=== PATIENT | female | born 1945 | race African-American/Black ===

== ENCOUNTER 2017-01-08 18:29 | Inpatient (IN) ==
[2017-01-08] MEDS ORDERED: ASPIRIN 325 MG TABLET PO STA (19:32)
[2017-01-08 20:12] LABS: Basophils # 0.1 10*3/uL (0.0-0.2); Basophils % 0.6 % (0.0-0.8); Eosinophils # 0.2 10*3/uL (0.0-0.87); Eosinophils % 2.6 % (0.00-10.9); Hematocrit 35.2 VOL% (35.7-47.0); Hemoglobin 11.8 GM/DL (12.0-16.0); Immature Granulocytes % 0.3 %; Immature Granulocytes Absolute 0.03 #; Lymphocytes # 2.3 10*3/uL (1.4-4.0); Lymphocytes % 26.7 % (21.3-54.2); Mean Corpuscular HGB Conc 33.5 GM/DL (32-36); Mean Corpuscular Hemoglobin 30 PG (27-34); Mean Corpuscular Volume 90.3 FL (87-102); Mean Platelet Volume 9.9 FL (9.6-12.0); Monocytes # 0.6 10*3/uL (0.11-0.8); Monocytes % 7.1 % (1.7-12.7); Neutrophils # 5.4 10*3/uL (1.4-7.4); Neutrophils % 62.7 % (38.7-73.9); Platelet Count 287 T/CUMM (130-400); Red Cell Distribution Width 13.5 % (9.3-17.3); White Blood Count 8.6 T/CUMM (4-12)
[2017-01-08 20:23] LABS: INR 0.9; Partial Thromboplastin Time 25.8 SECS (0-40)
[2017-01-08 20:26] LABS: Apearance,Urine CLEAR (Clear); Bilirubin,Urine Negative (Negative); Blood, Urine Negative (Negative); Glucose,Urine (UA) Negative (Negative); Ketones,Urine Negative (Negative); Nitrite,Urine Negative (Negative); Protein,Urine Negative; Urine Color Colorless (Yellow); Urine Specific Gravity 1.002 (1.001-1.035); Urine Urobilinogen < 2.0 EU/DL (0.2-1.0)
[2017-01-08 20:47] LABS: Alanine Aminotransferase 15 U/L (13-56); Albumin 3.5 G/DL (3.4-5.0); Alkaline Phosphatase 67 U/L (45-117); Aspartate Amino Transferase 11 U/L (0-37); Blood Urea Nitrogen 11 MG/DL (7-18); Calcium 9.8 MG/DL (8.5-10.1); Glucose 128 MG/DL (74-106); Osmolality,Calculated 277.5 MOS/KG (273-304); Potassium 3.4 MMOL/L (3.5-5.1); Sodium 139 MMOL/L (136-145); Total Protein 7.8 G/DL (6.4-8.3)
[2017-01-08] MEDS ORDERED: ASPIRIN 325 MG TABLET ONE (20:50)
[2017-01-08] MEDS ORDERED: POTASSIUM CHLORIDE 20 MEQ TABLET PO STA (20:51)
[2017-01-08] MEDS ORDERED: POTASSIUM CHLORIDE 20 MEQ TABLET PO ONE (20:56)
[2017-01-08] MEDS ORDERED: FUROSEMIDE 20 MG TABLET PO PRN (22:18)
[2017-01-08] MEDS ORDERED: ONDANSETRON 4 MG/2 ML VIAL IV PRN (22:18)
[2017-01-08] MEDS ORDERED: diphenhydrAMINE CAP 25 MG CAPSULE PO PRN (22:18)
[2017-01-08] MEDS ORDERED: DEXTROSE 50% 25 GM/50 ML VIAL IV PRN (22:18)
[2017-01-08] MEDS ORDERED: MORPHINE 2 MG/1 ML SYRINGE IV PRN (22:18)
[2017-01-08] MEDS ORDERED: ACETAMINOPHEN 325 MG TABLET PO PRN (22:18)
[2017-01-08] MEDS ORDERED: GLUCAGON 1 MG VIAL IM PRN (22:18)
[2017-01-08] MEDS: ENOXAPARIN 40 MG/0.4 ML SYRINGE SUBCUT SCH (23:19)
[2017-01-08] MEDS: SODIUM CHLORIDE 0.9% 1,000 ML IV SCH (23:19)
[2017-01-09 05:50] LABS: Basophils # 0.1 10*3/uL (0.0-0.2); Basophils % 0.8 % (0.0-0.8); Eosinophils # 0.3 10*3/uL (0.0-0.87); Eosinophils % 3.4 % (0.00-10.9); Hematocrit 31.9 VOL% (35.7-47.0); Hemoglobin 10.6 GM/DL (12.0-16.0); Immature Granulocytes % 0.3 %; Immature Granulocytes Absolute 0.02 #; Lymphocytes # 2.3 10*3/uL (1.4-4.0); Lymphocytes % 30.1 % (21.3-54.2); Mean Corpuscular HGB Conc 33.2 GM/DL (32-36); Mean Corpuscular Hemoglobin 30 PG (27-34); Mean Corpuscular Volume 89.1 FL (87-102); Mean Platelet Volume 10.6 FL (9.6-12.0); Monocytes # 0.6 10*3/uL (0.11-0.8); Monocytes % 7.9 % (1.7-12.7); Neutrophils # 4.4 10*3/uL (1.4-7.4); Neutrophils % 57.5 % (38.7-73.9); Platelet Count 272 T/CUMM (130-400); Red Blood Count 3.58 MC/CUMM (3.8-5.5); Red Cell Distribution Width 13.6 % (9.3-17.3); White Blood Count 7.6 T/CUMM (4-12)
[2017-01-09 06:10] LABS: Albumin 2.8 G/DL (3.4-5.0); Bilirubin,Total 1.4 MG/DL (0.2-1.0); Calcium 9.2 MG/DL (8.5-10.1); Magnesium 1.6 MG/DL (1.8-2.4); Osmolality,Calculated 281.4 MOS/KG (273-304); Potassium 3.7 MMOL/L (3.5-5.1); Risk Ratio 1.94; VLDL CHOLESTEROL 21.2 MG/DL
[2017-01-09] MEDS ORDERED: MAGNESIUM SULF RIDER 2 GM in PREMIX 1 EACH IV ONE (06:39)
[2017-01-09 07:42] LABS: Folate 8.2 NG/ML (5.4-24.0)
[2017-01-09] MEDS: metFORMIN 500 MG TABLET PO SCH ×2 (08:51→21:18)
[2017-01-09] MEDS: GABAPENTIN 600 MG TABLET PO SCH ×2 (08:51→21:19)
[2017-01-09] MEDS: DOCUSATE SODIUM 100 MG CAPSULE PO SCH ×2 (08:52→21:20)
[2017-01-09] MEDS ORDERED: GLIMEPIRIDE 2 MG TABLET PO SCH (09:00)
[2017-01-09] MEDS: PANTOPRAZOLE 40 MG TABLET PO SCH (09:07)
[2017-01-09] MEDS: LOSARTAN/HCTZ 50-12.5 MG TABLET PO SCH (09:58)
[2017-01-09] MEDS: INSULIN REGULAR 100 UNIT/ML SUBCUT SCH ×4 (09:58→21:20)
[2017-01-09] MEDS: SODIUM CHLORIDE 0.9% 1,000 ML IV SCH (17:38)
[2017-01-09] MEDS ORDERED: sitaGLIPtin 100 MG TABLET PO SCH (21:00)
[2017-01-09] MEDS ORDERED: POTASSIUM CHLORIDE 20 MEQ TABLET PO ONE (21:00)
[2017-01-09] MEDS ORDERED: SIMVASTATIN 40 MG TABLET PO SCH (21:00)
[2017-01-09] MEDS: ENOXAPARIN 40 MG/0.4 ML SYRINGE SUBCUT SCH (21:19)
[2017-01-09] MEDS: GLIMEPIRIDE 2 MG TABLET PO SCH (21:19)
[2017-01-10 06:18] LABS: Calcium 9.3 MG/DL (8.5-10.1); Magnesium 1.8 MG/DL (1.8-2.4); Osmolality,Calculated 280.4 MOS/KG (273-304); Potassium 3.9 MMOL/L (3.5-5.1)
[2017-01-10] MEDS ORDERED: MAGNESIUM CHLORIDE 64 MG TABLET PO SCH (09:00)
[2017-01-10] MEDS: metFORMIN 500 MG TABLET PO SCH (10:04)
[2017-01-10] MEDS: GABAPENTIN 600 MG TABLET PO SCH (10:04)
[2017-01-10] MEDS: LOSARTAN/HCTZ 50-12.5 MG TABLET PO SCH (10:04)
[2017-01-10] MEDS: GLIMEPIRIDE 2 MG TABLET PO SCH (10:05)
[2017-01-10] MEDS: DOCUSATE SODIUM 100 MG CAPSULE PO SCH (10:05)
[2017-01-10] MEDS: PANTOPRAZOLE 40 MG TABLET PO SCH (10:05)
[2017-01-10] MEDS: INSULIN REGULAR 100 UNIT/ML SUBCUT SCH ×2 (10:06→13:40)
[2017-01-10 11:45] VITALS: BP 162/87
[2017-01-10] MEDS: SODIUM CHLORIDE 0.9% 1,000 ML IV SCH (13:41)
== END 2017-01-10 13:50 | disposition home or self-care (01) | DRG 69 ==
LOC: N.ED 18:29 → N.EDINP 21:02 → N.TELEN 21:08
PROVIDERS: ADMIT Family Medicine; ATTEND Family Medicine

== ENCOUNTER 2017-06-24 16:41 | Inpatient (IN) ==
[2017-06-26 11:23] VITALS: BP 167/96
== END 2017-06-26 16:15 | disposition home or self-care (01) | DRG 69 ==
LOC: N.ED 16:41 → N.EDINP 19:13 → N.TELES 20:12
PROVIDERS: ADMIT Family Medicine; ATTEND Family Medicine

== ENCOUNTER 2018-12-07 12:21 | Inpatient (IN) ==
[2018-12-07] MEDS ORDERED: DEXTROSE 50% 25 GM/50 ML VIAL IV PRN (12:48)
[2018-12-07] MEDS ORDERED: ONDANSETRON 4 MG/2 ML VIAL IV PRN (12:48)
[2018-12-07] MEDS ORDERED: ACETAMINOPHEN 325 MG TABLET PO PRN (12:48)
[2018-12-07] MEDS ORDERED: DOCUSATE SODIUM 100 MG CAPSULE PO PRN (12:48)
[2018-12-07] MEDS ORDERED: GLUCAGON 1 MG VIAL IM PRN (12:48)
[2018-12-07 14:24] LABS: Basophils % 0.5 % (0.0-0.8); Eosinophils # 0.2 10*3/uL (0.0-0.87); Eosinophils % 2.4 % (0.00-10.9); Hematocrit 36.1 VOL% (35.7-47.0); Hemoglobin 11.7 GM/DL (12.0-16.0); Immature Granulocytes % 0.6 %; Immature Granulocytes Absolute 0.05 #; Lymphocytes # 0.6 10*3/uL (1.4-4.0); Lymphocytes % 7.3 % (21.3-54.2); Mean Corpuscular HGB Conc 32.4 GM/DL (32-36); Mean Corpuscular Volume 91.4 FL (87-102); Mean Platelet Volume 9.3 FL (9.6-12.0); Monocytes % 5.9 % (1.7-12.7); Neutrophils % 83.3 % (38.7-73.9); Platelet Count 323 T/CUMM (130-400); Red Blood Count 3.95 MC/CUMM (3.8-5.5); Red Cell Distribution Width 14.1 % (9.3-17.3); White Blood Count 7.8 T/CUMM (4-12)
[2018-12-07 14:30] LABS: INR 0.9; PT Patient Result 10.2 SECS (9.6-12.2)
[2018-12-07 14:49] LABS: Albumin 4.1 G/DL (3.4-5.0); Bilirubin,Total 1.4 MG/DL (0.2-1.0); Calcium 10.5 MG/DL (8.5-10.1); Osmolality,Calculated 268.4 MOS/KG (273-304); Total Protein 8.3 G/DL (6.4-8.3)
[2018-12-07] MEDS: SODIUM CHLORIDE 0.9% 1,000 ML IV SCH (15:36)
[2018-12-07] MEDS ORDERED: diphenhydrAMINE CAP 25 MG CAPSULE PO PRN (17:44)
[2018-12-07] MEDS ORDERED: FUROSEMIDE 20 MG TABLET PO PRN (17:44)
[2018-12-07] MEDS: INSULIN LISPRO 100 UNIT/ML SUBCUT SCH ×2 (17:53→21:32)
[2018-12-07 20:26] LABS: Apearance,Urine CLEAR (Clear); Bacteria,Urine Occasional /HPF (Few); Bilirubin,Urine Negative (Negative); Blood, Urine Negative (Negative); Glucose,Urine (UA) Negative (Negative); Ketones,Urine Negative (Negative); Nitrite,Urine Negative (Negative); Protein,Urine Negative; RBC,Urine 1 /HPF (0-4); Urine Color Colorless (Yellow); Urine Specific Gravity 1.004 (1.001-1.035); Urine Urobilinogen < 2.0 EU/DL (0.2-1.0); WBC,Urine 2 /HPF (0-6)
[2018-12-07] MEDS ORDERED: ASPIRIN EC 81 MG TABLET PO SCH ×2 (21:00)
[2018-12-07] MEDS ORDERED: NON-FORMULARY MEDICATION (Metformin 1,000 MG) PO SCH (21:00)
[2018-12-07] MEDS ORDERED: sitaGLIPtin 100 MG TABLET PO SCH (21:00)
[2018-12-07] MEDS ORDERED: CLOPIDOGREL 75 MG TABLET PO SCH ×2 (21:00)
[2018-12-07] MEDS ORDERED: ENOXAPARIN 30 MG/0.3 ML SYRINGE SUBCUT SCH (21:00)
[2018-12-07] MEDS ORDERED: GLIMEPIRIDE 2 MG TABLET PO SCH (21:00)
[2018-12-07] MEDS ORDERED: SIMVASTATIN 40 MG TABLET PO SCH (21:00)
[2018-12-07] MEDS: metFORMIN 500 MG TABLET PO SCH (21:33)
[2018-12-07] MEDS: GABAPENTIN 600 MG TABLET PO SCH (21:33)
[2018-12-07] MEDS: MAGNESIUM CHLORIDE 64 MG TABLET PO SCH (21:34)
[2018-12-08] MEDS: SODIUM CHLORIDE 0.9% 1,000 ML IV SCH (06:20)
[2018-12-08] MEDS: INSULIN LISPRO 100 UNIT/ML SUBCUT SCH ×2 (08:51→12:57)
[2018-12-08] MEDS ORDERED: amLODIPine 5 MG TABLET PO SCH (09:00)
[2018-12-08] MEDS ORDERED: LISINOPRIL 10 MG TABLET PO SCH (09:00)
[2018-12-08] MEDS ORDERED: MELOXICAM 7.5 MG TABLET PO SCH (09:00)
[2018-12-08] MEDS ORDERED: PANTOPRAZOLE 40 MG TABLET PO SCH ×2 (09:00)
[2018-12-08] MEDS: GABAPENTIN 600 MG TABLET PO SCH (09:02)
[2018-12-08] MEDS: metFORMIN 500 MG TABLET PO SCH (09:02)
[2018-12-08] MEDS: MAGNESIUM CHLORIDE 64 MG TABLET PO SCH (09:03)
[2018-12-08 11:07] VITALS: BP 136/65
[2018-12-08] MEDS ORDERED: APIXABAN 2.5 MG TABLET PO SCH (21:00)
== END 2018-12-08 13:25 | DRG 65 ==
LOC: N.4E 12:53
PROVIDERS: ADMIT Family Medicine; ATTEND Family Medicine

== ENCOUNTER 2019-07-23 13:43 | Inpatient (IN) ==
[2019-07-23 14:54] LABS: Bilirubin,Total 0.9 MG/DL (0.2-1.0); Calcium 10.2 MG/DL (8.5-10.1); Osmolality,Calculated 264.4 MOS/KG (273-304); Total Protein 8.1 G/DL (6.4-8.3)
[2019-07-23 14:59] LABS: INR 1.1; PT Patient Result 11.8 SECS (9.8-11.9); Partial Thromboplastin Time 24.7 SECS (23.9-33.8)
[2019-07-23 15:00] LABS: Basophils % 0.5 % (0.0-0.8); Eosinophils # 0.1 10*3/uL (0.0-0.87); Eosinophils % 1.6 % (0.00-10.9); Hematocrit 33.5 VOL% (35.7-47.0); Hemoglobin 11.2 GM/DL (12.0-16.0); Immature Granulocytes % 0.5 %; Immature Granulocytes Absolute 0.03 #; Lymphocytes # 0.3 10*3/uL (1.4-4.0); Lymphocytes % 5.4 % (21.3-54.2); Mean Corpuscular HGB Conc 33.4 GM/DL (32-36); Mean Corpuscular Volume 88.9 FL (87-102); Mean Platelet Volume 9.8 FL (9.6-12.0); Monocytes % 3.2 % (1.7-12.7); Neutrophils % 88.8 % (38.7-73.9); Platelet Count 415 T/CUMM (130-400); Red Blood Count 3.77 MC/CUMM (3.8-5.5); White Blood Count 5.7 T/CUMM (4-12)
[2019-07-23 15:00] LABS: Apearance,Urine CLEAR (Clear); Bilirubin,Urine Negative (Negative); Blood, Urine Negative (Negative); Glucose,Urine (UA) Negative (Negative); Hyaline Casts,Urine 35 /LPF (0-3); Ketones,Urine Negative (Negative); Nitrite,Urine Negative (Negative); Protein,Urine Negative; RBC,Urine 3 /HPF (0-4); Squamous Epithelial Cell,Urine Occasional /HPF (0-10); Urine Color Yellow (Yellow); Urine Urobilinogen < 2.0 EU/DL (0.2-1.0); WBC,Urine 1 /HPF (0-6)
[2019-07-23] MEDS ORDERED: ONDANSETRON 4 MG/2 ML VIAL IV PRN (15:59)
[2019-07-23] MEDS ORDERED: MAGNESIUM SULF RIDER 2 GM in PREMIX 1 EACH IV PRN (17:04)
[2019-07-23] MEDS: SODIUM CHLORIDE 0.45% 1,000 ML IV SCH (17:33)
[2019-07-23] MEDS: ENOXAPARIN 30 MG/0.3 ML SYRINGE SUBCUT SCH (18:05)
[2019-07-23] MEDS: POTASSIUM CHLORIDE RIDER 10 MEQ in PREMIX 1 EACH IV PRN ×3 (18:14→22:10)
[2019-07-23] MEDS: cloNIDine 0.1 MG TABLET PO SCH (21:26)
[2019-07-23] MEDS: MAGNESIUM CHLORIDE 64 MG TABLET PO SCH (21:26)
[2019-07-23] MEDS: DOCUSATE SODIUM 100 MG CAPSULE PO SCH (21:26)
[2019-07-23] MEDS: sitaGLIPtin 100 MG TABLET PO SCH (21:26)
[2019-07-23] MEDS: metFORMIN 500 MG TABLET PO SCH (21:26)
[2019-07-23] MEDS: SIMVASTATIN 40 MG TABLET PO SCH (21:26)
[2019-07-23] MEDS: GABAPENTIN 600 MG TABLET PO SCH (21:26)
[2019-07-24] MEDS: POTASSIUM CHLORIDE RIDER 10 MEQ in PREMIX 1 EACH IV PRN ×2 (00:18→02:38)
[2019-07-24] MEDS: METOPROLOL SUCCINATE XL 50 MG TABLET PO SCH (09:01)
[2019-07-24] MEDS: cloNIDine 0.1 MG TABLET PO SCH ×2 (09:01→21:11)
[2019-07-24] MEDS: MAGNESIUM CHLORIDE 64 MG TABLET PO SCH ×2 (09:01→21:11)
[2019-07-24] MEDS: FUROSEMIDE 40 MG TABLET PO SCH (09:01)
[2019-07-24] MEDS: DOCUSATE SODIUM 100 MG CAPSULE PO SCH ×2 (09:01→21:11)
[2019-07-24] MEDS: CLOPIDOGREL 75 MG TABLET PO SCH (09:01)
[2019-07-24] MEDS: GABAPENTIN 600 MG TABLET PO SCH ×2 (09:02→21:11)
[2019-07-24] MEDS: CHLORTHALIDONE 25 MG TABLET PO SCH (09:02)
[2019-07-24] MEDS: PANTOPRAZOLE 40 MG TABLET PO SCH (09:02)
[2019-07-24] MEDS: metFORMIN 500 MG TABLET PO SCH ×2 (09:02→21:11)
[2019-07-24] MEDS: SODIUM CHLORIDE 0.45% 1,000 ML IV SCH ×2 (11:37→18:54)
[2019-07-24] MEDS: ENOXAPARIN 30 MG/0.3 ML SYRINGE SUBCUT SCH (18:25)
[2019-07-24] MEDS: SIMVASTATIN 40 MG TABLET PO SCH (21:11)
[2019-07-24] MEDS: sitaGLIPtin 100 MG TABLET PO SCH (21:11)
[2019-07-25] MEDS: SODIUM CHLORIDE 0.45% 1,000 ML IV SCH ×2 (05:07→08:47)
[2019-07-25 06:26] LABS: Calcium 9.3 MG/DL (8.5-10.1); Osmolality,Calculated 263.1 MOS/KG (273-304)
[2019-07-25] MEDS: POTASSIUM CHLORIDE RIDER 10 MEQ in PREMIX 1 EACH IV PRN ×5 (06:48→12:20)
[2019-07-25] MEDS: metFORMIN 500 MG TABLET PO SCH ×2 (08:42→22:35)
[2019-07-25] MEDS: cloNIDine 0.1 MG TABLET PO SCH ×2 (08:42→22:35)
[2019-07-25] MEDS: MAGNESIUM CHLORIDE 64 MG TABLET PO SCH ×2 (08:43→22:35)
[2019-07-25] MEDS: CHLORTHALIDONE 25 MG TABLET PO SCH (08:43)
[2019-07-25] MEDS: PANTOPRAZOLE 40 MG TABLET PO SCH (08:43)
[2019-07-25] MEDS: CLOPIDOGREL 75 MG TABLET PO SCH (08:43)
[2019-07-25] MEDS: GABAPENTIN 600 MG TABLET PO SCH ×2 (08:43→22:35)
[2019-07-25] MEDS: METOPROLOL SUCCINATE XL 50 MG TABLET PO SCH (08:43)
[2019-07-25] MEDS: FUROSEMIDE 40 MG TABLET PO SCH (08:43)
[2019-07-25] MEDS: DOCUSATE SODIUM 100 MG CAPSULE PO SCH ×2 (08:43→22:35)
[2019-07-25] MEDS: ENOXAPARIN 40 MG/0.4 ML SYRINGE SUBCUT SCH (18:23)
[2019-07-25] MEDS: sitaGLIPtin 100 MG TABLET PO SCH (22:35)
[2019-07-25] MEDS: SIMVASTATIN 40 MG TABLET PO SCH (22:35)
[2019-07-26] MEDS: SODIUM CHLORIDE 0.45% 1,000 ML IV SCH ×2 (00:20→17:36)
[2019-07-26 06:01] LABS: Basophils % 0.6 % (0.0-0.8); Eosinophils # 0.4 10*3/uL (0.0-0.87); Hematocrit 29.5 VOL% (35.7-47.0); Hemoglobin 9.6 GM/DL (12.0-16.0); Immature Granulocytes % 0.6 %; Immature Granulocytes Absolute 0.03 #; Lymphocytes # 0.4 10*3/uL (1.4-4.0); Lymphocytes % 6.8 % (21.3-54.2); Mean Corpuscular HGB Conc 32.5 GM/DL (32-36); Mean Platelet Volume 9.7 FL (9.6-12.0); Monocytes % 6.8 % (1.7-12.7); Neutrophils % 78.2 % (38.7-73.9); Platelet Count 376 T/CUMM (130-400); Red Blood Count 3.24 MC/CUMM (3.8-5.5); Red Cell Distribution Width 13.7 % (9.3-17.3); White Blood Count 5.3 T/CUMM (4-12)
[2019-07-26 06:16] LABS: Calcium 8.9 MG/DL (8.5-10.1); Osmolality,Calculated 262.9 MOS/KG (273-304)
[2019-07-26] MEDS: POTASSIUM CHLORIDE RIDER 10 MEQ in PREMIX 1 EACH IV PRN ×3 (06:43→11:22)
[2019-07-26] MEDS ORDERED: POTASSIUM CHLORIDE 20 MEQ TABLET PO ONE (08:25)
[2019-07-26] MEDS: GABAPENTIN 600 MG TABLET PO SCH ×2 (09:56→21:15)
[2019-07-26] MEDS: metFORMIN 500 MG TABLET PO SCH ×2 (09:56→21:15)
[2019-07-26] MEDS: CLOPIDOGREL 75 MG TABLET PO SCH (09:56)
[2019-07-26] MEDS: MAGNESIUM CHLORIDE 64 MG TABLET PO SCH ×2 (09:57→21:15)
[2019-07-26] MEDS: CHLORTHALIDONE 25 MG TABLET PO SCH (09:57)
[2019-07-26] MEDS: PANTOPRAZOLE 40 MG TABLET PO SCH (09:57)
[2019-07-26] MEDS: DOCUSATE SODIUM 100 MG CAPSULE PO SCH ×2 (09:57→21:15)
[2019-07-26] MEDS: METOPROLOL SUCCINATE XL 50 MG TABLET PO SCH (09:57)
[2019-07-26] MEDS: FUROSEMIDE 40 MG TABLET PO SCH (09:57)
[2019-07-26] MEDS: cloNIDine 0.1 MG TABLET PO SCH ×2 (09:59→21:15)
[2019-07-26] MEDS: ENOXAPARIN 40 MG/0.4 ML SYRINGE SUBCUT SCH (17:58)
[2019-07-26] MEDS: ACETAMINOPHEN 325 MG TABLET PO PRN (21:14)
[2019-07-26] MEDS: SIMVASTATIN 40 MG TABLET PO SCH (21:15)
[2019-07-26] MEDS: sitaGLIPtin 100 MG TABLET PO SCH (21:15)
[2019-07-27 07:01] LABS: Basophils % 0.7 % (0.0-0.8); Eosinophils # 0.3 10*3/uL (0.0-0.87); Eosinophils % 5.5 % (0.00-10.9); Hemoglobin 9.5 GM/DL (12.0-16.0); Immature Granulocytes % 0.5 %; Immature Granulocytes Absolute 0.03 #; Lymphocytes # 0.3 10*3/uL (1.4-4.0); Lymphocytes % 5.7 % (21.3-54.2); Mean Corpuscular HGB Conc 32.8 GM/DL (32-36); Mean Corpuscular Volume 91.2 FL (87-102); Mean Platelet Volume 9.3 FL (9.6-12.0); Monocytes % 7.9 % (1.7-12.7); Neutrophils % 79.7 % (38.7-73.9); Platelet Count 347 T/CUMM (130-400); Red Blood Count 3.18 MC/CUMM (3.8-5.5); Red Cell Distribution Width 13.3 % (9.3-17.3); White Blood Count 5.6 T/CUMM (4-12)
[2019-07-27 07:48] LABS: Calcium 8.9 MG/DL (8.5-10.1); Osmolality,Calculated 255.5 MOS/KG (273-304)
[2019-07-27] MEDS: CHLORTHALIDONE 25 MG TABLET PO SCH (09:07)
[2019-07-27] MEDS: metFORMIN 500 MG TABLET PO SCH ×2 (09:07→22:26)
[2019-07-27] MEDS: FUROSEMIDE 40 MG TABLET PO SCH (09:07)
[2019-07-27] MEDS: CLOPIDOGREL 75 MG TABLET PO SCH (09:07)
[2019-07-27] MEDS: METOPROLOL SUCCINATE XL 50 MG TABLET PO SCH (09:07)
[2019-07-27] MEDS: DOCUSATE SODIUM 100 MG CAPSULE PO SCH ×2 (09:07→22:26)
[2019-07-27] MEDS: cloNIDine 0.1 MG TABLET PO SCH ×2 (09:07→22:26)
[2019-07-27] MEDS: MAGNESIUM CHLORIDE 64 MG TABLET PO SCH ×2 (09:07→22:26)
[2019-07-27] MEDS: GABAPENTIN 600 MG TABLET PO SCH ×2 (09:07→22:26)
[2019-07-27] MEDS: PANTOPRAZOLE 40 MG TABLET PO SCH (09:08)
[2019-07-27] MEDS ORDERED: SIMETHICONE CHEW 125 MG TABLET PO PRN (15:25)
[2019-07-27] MEDS ORDERED: DEXTROSE 5% NACL 0.9% 1,000 ML IV SCH (20:30)
[2019-07-27] MEDS ORDERED: SODIUM CHLORIDE 3% IV SCH (21:00)
[2019-07-27] MEDS: sitaGLIPtin 100 MG TABLET PO SCH (22:26)
[2019-07-27] MEDS: SIMVASTATIN 40 MG TABLET PO SCH (22:27)
[2019-07-28] MEDS: SODIUM CHLORIDE 0.45% 1,000 ML IV SCH (04:09)
[2019-07-28 08:20] LABS: Calcium 9.7 MG/DL (8.5-10.1); Osmolality,Calculated 253.5 MOS/KG (273-304)
[2019-07-28] MEDS: DOCUSATE SODIUM 100 MG CAPSULE PO SCH ×2 (08:57→21:29)
[2019-07-28] MEDS: GABAPENTIN 600 MG TABLET PO SCH ×2 (08:57→21:29)
[2019-07-28] MEDS: cloNIDine 0.1 MG TABLET PO SCH ×2 (08:57→21:27)
[2019-07-28] MEDS: CLOPIDOGREL 75 MG TABLET PO SCH (08:57)
[2019-07-28] MEDS: PANTOPRAZOLE 40 MG TABLET PO SCH (08:57)
[2019-07-28] MEDS: MAGNESIUM CHLORIDE 64 MG TABLET PO SCH ×2 (08:57→21:27)
[2019-07-28] MEDS: FUROSEMIDE 40 MG TABLET PO SCH (08:58)
[2019-07-28] MEDS: metFORMIN 500 MG TABLET PO SCH ×2 (08:58→21:28)
[2019-07-28] MEDS: CHLORTHALIDONE 25 MG TABLET PO SCH (08:58)
[2019-07-28] MEDS: METOPROLOL SUCCINATE XL 50 MG TABLET PO SCH (08:58)
[2019-07-28] MEDS: ACETAMINOPHEN 325 MG TABLET PO PRN ×2 (12:35→21:28)
[2019-07-28] MEDS ORDERED: SODIUM CHLORIDE 3% IV SCH (13:00)
[2019-07-28 21:18] LABS: Calcium 9.3 MG/DL (8.5-10.1); Osmolality,Calculated 259.2 MOS/KG (273-304)
[2019-07-28] MEDS: SIMVASTATIN 40 MG TABLET PO SCH (21:29)
[2019-07-28] MEDS: sitaGLIPtin 100 MG TABLET PO SCH (21:29)
[2019-07-29 06:59] LABS: Calcium 9.3 MG/DL (8.5-10.1); Osmolality,Calculated 259.2 MOS/KG (273-304)
[2019-07-29] MEDS: GABAPENTIN 600 MG TABLET PO SCH (09:02)
[2019-07-29] MEDS: cloNIDine 0.1 MG TABLET PO SCH (09:02)
[2019-07-29] MEDS: METOPROLOL SUCCINATE XL 50 MG TABLET PO SCH (09:03)
[2019-07-29] MEDS: MAGNESIUM CHLORIDE 64 MG TABLET PO SCH (09:03)
[2019-07-29] MEDS: CLOPIDOGREL 75 MG TABLET PO SCH (09:03)
[2019-07-29] MEDS: PANTOPRAZOLE 40 MG TABLET PO SCH (09:03)
[2019-07-29] MEDS: DOCUSATE SODIUM 100 MG CAPSULE PO SCH (09:03)
[2019-07-29] MEDS: ACETAMINOPHEN 325 MG TABLET PO PRN (09:03)
[2019-07-29] MEDS: metFORMIN 500 MG TABLET PO SCH (09:03)
[2019-07-29] MEDS ORDERED: POTASSIUM CHLORIDE 20 MEQ TABLET PO ONE (09:13)
[2019-07-29] MEDS ORDERED: LOSARTAN 25 MG TABLET PO SCH (09:15)
[2019-07-29] MEDS ORDERED: SODIUM CHLORIDE 3% INJ 50 ML IV SCH (10:00)
[2019-07-29 11:32] VITALS: BP 132/58
== END 2019-07-29 15:12 | disposition swing bed (61) | DRG 640 ==
LOC: N.ED 13:43 → N.EDINP 13:43 → N.3E 16:30
PROVIDERS: ADMIT Family Medicine; ATTEND Family Medicine

== ENCOUNTER 2019-08-04 04:47 | Inpatient (IN) ==
[2019-08-04] MEDS ORDERED: SODIUM CHLORIDE 0.9% 500 ML IV STA (05:18)
[2019-08-04] MEDS ORDERED: hydrALAZINE 20 MG/1 ML VIAL IV STA (05:18)
[2019-08-04] MEDS ORDERED: PIPERACILLIN/TAZOBACTAM 3,375 MG in SODIUM CHLORIDE 0.9% 100 ML IV STA (05:18)
[2019-08-04 05:27] LABS: Basophils % 0.2 % (0.0-0.8); Eosinophils % 0.1 % (0.00-10.9); Hematocrit 36.2 VOL% (35.7-47.0); Hemoglobin 11.9 GM/DL (12.0-16.0); Immature Granulocytes % 0.7 %; Immature Granulocytes Absolute 0.08 #; Lymphocytes # 0.5 10*3/uL (1.4-4.0); Lymphocytes % 4.5 % (21.3-54.2); Mean Corpuscular HGB Conc 32.9 GM/DL (32-36); Mean Corpuscular Volume 90.3 FL (87-102); Mean Platelet Volume 9.2 FL (9.6-12.0); Monocytes % 0.8 % (1.7-12.7); Neutrophils % 93.7 % (38.7-73.9); Platelet Count 403 T/CUMM (130-400); Red Blood Count 4.01 MC/CUMM (3.8-5.5); Red Cell Distribution Width 13.2 % (9.3-17.3); White Blood Count 11.2 T/CUMM (4-12)
[2019-08-04] MEDS ORDERED: DEXTROSE 10% 0 ML IV ONE (05:31)
[2019-08-04 05:47] LABS: Alanine Aminotransferase 16 U/L (13-56); Albumin 3.7 G/DL (3.4-5.0); Alkaline Phosphatase 92 U/L (45-117); Aspartate Amino Transferase 16 U/L (0-37); Blood Urea Nitrogen 20 MG/DL (7-18); Calcium 10.9 MG/DL (8.5-10.1); Estimated Glom Filtration Rate 45 ML/MIN; Glucose 302 MG/DL (74-106); Osmolality,Calculated 266.4 MOS/KG (273-304); Total Protein 8.5 G/DL (6.4-8.3); Troponin I < 0.015 NG/ML (0.00-0.045)
[2019-08-04 06:03] LABS: Lymphocytes 4 % (20-55); Nucleated Red Blood Cells 1 (0-5); Platelet Estimate Adequate; Segmented Neutrophils 95 % (50-85); Total Cells Counted 100
[2019-08-04] MEDS ORDERED: HALOPERIDOL 5 MG/ML AMP IM STA (06:37)
[2019-08-04] MEDS ORDERED: methylPREDNISolone SOD SUC 125 MG/2 ML VIAL IV STA (06:37)
[2019-08-04 06:42] LABS: Sedimentation Rate-Westergren 84 MM/HR (0-30)
[2019-08-04 06:49] LABS: Apearance,Urine CLEAR (Clear); Bilirubin,Urine Negative (Negative); Blood, Urine Small mg/dL (Negative); Glucose,Urine (UA) >=500 mg/dL (Negative); Ketones,Urine 5 mg/dL (Negative); Nitrite,Urine Negative (Negative); Protein,Urine 100 MG/DL; RBC,Urine 5 /HPF (0-4); Squamous Epithelial Cell,Urine Occasional /HPF (0-10); Urine Color Straw (Yellow); Urine Specific Gravity 1.008 (1.001-1.035); Urine Urobilinogen < 2.0 EU/DL (0.2-1.0)
[2019-08-04 06:51] LABS: Barbiturates Screen,Urine Negative (Negative); Benzodiazepines Screen,Urine Negative (Negative); Cannabinoid Screen,Urine Negative (Negative); Opiate Screen,Urine Negative (Negative); Phencyclidine Screen,Urine Negative (Negative)
[2019-08-04] MEDS ORDERED: ONDANSETRON 4 MG/2 ML VIAL IV PRN (14:26)
[2019-08-04] MEDS ORDERED: SIMETHICONE CHEW 125 MG TABLET PO PRN (14:26)
[2019-08-04] MEDS ORDERED: GLUCAGON 1 MG VIAL IM PRN (14:26)
[2019-08-04] MEDS ORDERED: DEXTROSE 10% 250 ML BAG IV PRN (14:26)
[2019-08-04] MEDS: CLOPIDOGREL 75 MG TABLET PO SCH (14:46)
[2019-08-04] MEDS: cloNIDine 0.1 MG TABLET PO SCH ×2 (14:46→21:51)
[2019-08-04] MEDS: FUROSEMIDE 40 MG TABLET PO SCH (14:46)
[2019-08-04] MEDS: CLINDAMYCIN INJ 900 MG in PREMIX 1 EACH IV SCH (15:07)
[2019-08-04] MEDS: methylPREDNISolone SOD SUC 125 MG/2 ML VIAL IV SCH (15:09)
[2019-08-04] MEDS: HALOPERIDOL 1 MG TABLET PO SCH ×2 (15:15→21:51)
[2019-08-04] MEDS: METOPROLOL SUCCINATE XL 50 MG TABLET PO SCH (15:16)
[2019-08-04] MEDS: GABAPENTIN 600 MG TABLET PO SCH ×3 (15:16→21:50)
[2019-08-04] MEDS: PANTOPRAZOLE 40 MG TABLET PO SCH ×2 (15:20→21:51)
[2019-08-04] MEDS: MAGNESIUM CHLORIDE 64 MG TABLET PO SCH ×2 (15:20→21:51)
[2019-08-04] MEDS: metFORMIN 500 MG TABLET PO SCH ×2 (15:34→21:49)
[2019-08-04] MEDS: INSULIN REGULAR 100 UNIT/ML SUBCUT SCH ×3 (15:41→21:52)
[2019-08-04] MEDS: VANCOMYCIN INJ 1,250 MG in SODIUM CHLORIDE 0.9% 250 ML IV SCH (16:16)
[2019-08-04] MEDS: LOSARTAN 50 MG TABLET PO SCH (17:45)
[2019-08-04] MEDS: SIMVASTATIN 40 MG TABLET PO SCH (21:50)
[2019-08-04] MEDS: sitaGLIPtin 100 MG TABLET PO SCH (21:51)
[2019-08-05] MEDS: methylPREDNISolone SOD SUC 125 MG/2 ML VIAL IV SCH ×3 (00:42→16:24)
[2019-08-05] MEDS: CLINDAMYCIN INJ 900 MG in PREMIX 1 EACH IV SCH ×3 (00:49→15:35)
[2019-08-05] MEDS: HALOPERIDOL 1 MG TABLET PO SCH ×3 (09:02→21:04)
[2019-08-05] MEDS: FUROSEMIDE 40 MG TABLET PO SCH (09:03)
[2019-08-05] MEDS: PANTOPRAZOLE 40 MG TABLET PO SCH ×2 (09:03→21:00)
[2019-08-05] MEDS: cloNIDine 0.1 MG TABLET PO SCH ×2 (09:03→21:00)
[2019-08-05] MEDS: MAGNESIUM CHLORIDE 64 MG TABLET PO SCH ×2 (09:03→21:04)
[2019-08-05] MEDS: GABAPENTIN 600 MG TABLET PO SCH (09:03)
[2019-08-05] MEDS: CLOPIDOGREL 75 MG TABLET PO SCH (09:03)
[2019-08-05] MEDS: METOPROLOL SUCCINATE XL 50 MG TABLET PO SCH (09:03)
[2019-08-05] MEDS: LOSARTAN 50 MG TABLET PO SCH (09:15)
[2019-08-05] MEDS: INSULIN GLARGINE 100 UNIT/ML SUBCUT SCH (09:24)
[2019-08-05] MEDS: INSULIN REGULAR 100 UNIT/ML SUBCUT SCH ×4 (11:29→20:57)
[2019-08-05] MEDS: metFORMIN 500 MG TABLET PO SCH ×2 (11:29→21:04)
[2019-08-05] MEDS: VANCOMYCIN INJ 1,250 MG in SODIUM CHLORIDE 0.9% 250 ML IV SCH (16:20)
[2019-08-05] MEDS: sitaGLIPtin 100 MG TABLET PO SCH (21:00)
[2019-08-05] MEDS: SIMVASTATIN 40 MG TABLET PO SCH (21:04)
[2019-08-06] MEDS: methylPREDNISolone SOD SUC 125 MG/2 ML VIAL IV SCH ×3 (00:06→15:17)
[2019-08-06] MEDS: CLINDAMYCIN INJ 900 MG in PREMIX 1 EACH IV SCH ×3 (00:08→15:21)
[2019-08-06] MEDS ORDERED: HALOPERIDOL 5 MG/ML AMP IM PRN (01:06)
[2019-08-06] MEDS ORDERED: risperiDONE 1 MG TABLET PO PRN (01:07)
[2019-08-06] MEDS: LOSARTAN 50 MG TABLET PO SCH (09:56)
[2019-08-06] MEDS: metFORMIN 500 MG TABLET PO SCH ×2 (09:56→21:14)
[2019-08-06] MEDS: HALOPERIDOL 1 MG TABLET PO SCH ×3 (09:56→21:14)
[2019-08-06] MEDS: FUROSEMIDE 40 MG TABLET PO SCH (09:57)
[2019-08-06] MEDS: METOPROLOL SUCCINATE XL 50 MG TABLET PO SCH (09:57)
[2019-08-06] MEDS: MAGNESIUM CHLORIDE 64 MG TABLET PO SCH ×2 (09:57→21:13)
[2019-08-06] MEDS: GABAPENTIN 600 MG TABLET PO SCH ×2 (09:57→21:14)
[2019-08-06] MEDS: cloNIDine 0.1 MG TABLET PO SCH ×2 (09:57→21:14)
[2019-08-06] MEDS: CLOPIDOGREL 75 MG TABLET PO SCH (09:58)
[2019-08-06] MEDS: PANTOPRAZOLE 40 MG TABLET PO SCH ×2 (09:58→21:14)
[2019-08-06] MEDS: INSULIN GLARGINE 100 UNIT/ML SUBCUT SCH (10:02)
[2019-08-06] MEDS: INSULIN REGULAR 100 UNIT/ML SUBCUT SCH ×4 (10:02→21:14)
[2019-08-06] MEDS: VANCOMYCIN INJ 1,250 MG in SODIUM CHLORIDE 0.9% 250 ML IV SCH (16:17)
[2019-08-06] MEDS: sitaGLIPtin 100 MG TABLET PO SCH (21:14)
[2019-08-06] MEDS: SIMVASTATIN 40 MG TABLET PO SCH (21:14)
[2019-08-07] MEDS: CLINDAMYCIN INJ 900 MG in PREMIX 1 EACH IV SCH ×4 (00:53→23:39)
[2019-08-07] MEDS: methylPREDNISolone SOD SUC 125 MG/2 ML VIAL IV SCH ×4 (00:53→23:37)
[2019-08-07] MEDS: metFORMIN 500 MG TABLET PO SCH ×2 (09:27→22:05)
[2019-08-07] MEDS: DOCUSATE SODIUM 100 MG CAPSULE PO PRN (09:27)
[2019-08-07] MEDS: cloNIDine 0.1 MG TABLET PO SCH ×2 (09:27→22:05)
[2019-08-07] MEDS: CLOPIDOGREL 75 MG TABLET PO SCH (09:27)
[2019-08-07] MEDS: HALOPERIDOL 1 MG TABLET PO SCH ×3 (09:27→22:05)
[2019-08-07] MEDS: PANTOPRAZOLE 40 MG TABLET PO SCH ×2 (09:28→22:06)
[2019-08-07] MEDS: GABAPENTIN 600 MG TABLET PO SCH ×2 (09:28→22:05)
[2019-08-07] MEDS: FUROSEMIDE 40 MG TABLET PO SCH (09:28)
[2019-08-07] MEDS: LOSARTAN 50 MG TABLET PO SCH (09:28)
[2019-08-07] MEDS: METOPROLOL SUCCINATE XL 50 MG TABLET PO SCH (09:29)
[2019-08-07] MEDS: MAGNESIUM CHLORIDE 64 MG TABLET PO SCH ×2 (09:29→22:05)
[2019-08-07] MEDS: INSULIN GLARGINE 100 UNIT/ML SUBCUT SCH (09:35)
[2019-08-07] MEDS: INSULIN REGULAR 100 UNIT/ML SUBCUT SCH ×4 (09:36→22:06)
[2019-08-07] MEDS: VANCOMYCIN INJ 1,250 MG in SODIUM CHLORIDE 0.9% 250 ML IV SCH (18:16)
[2019-08-07] MEDS: SIMVASTATIN 40 MG TABLET PO SCH (22:05)
[2019-08-07] MEDS: sitaGLIPtin 100 MG TABLET PO SCH (22:05)
[2019-08-08] MEDS: MAGNESIUM CHLORIDE 64 MG TABLET PO SCH ×2 (09:03→21:35)
[2019-08-08] MEDS: GABAPENTIN 600 MG TABLET PO SCH ×2 (09:03→21:35)
[2019-08-08] MEDS: metFORMIN 500 MG TABLET PO SCH ×2 (09:03→21:35)
[2019-08-08] MEDS: PANTOPRAZOLE 40 MG TABLET PO SCH ×2 (09:04→21:35)
[2019-08-08] MEDS: METOPROLOL SUCCINATE XL 50 MG TABLET PO SCH (09:04)
[2019-08-08] MEDS: HALOPERIDOL 1 MG TABLET PO SCH ×3 (09:04→21:35)
[2019-08-08] MEDS: LOSARTAN 50 MG TABLET PO SCH (09:04)
[2019-08-08] MEDS: methylPREDNISolone SOD SUC 125 MG/2 ML VIAL IV SCH ×2 (09:04→17:00)
[2019-08-08] MEDS: CLOPIDOGREL 75 MG TABLET PO SCH (09:04)
[2019-08-08] MEDS: FUROSEMIDE 40 MG TABLET PO SCH (09:04)
[2019-08-08] MEDS: cloNIDine 0.1 MG TABLET PO SCH ×2 (09:04→21:35)
[2019-08-08] MEDS: INSULIN REGULAR 100 UNIT/ML SUBCUT SCH ×4 (09:18→21:35)
[2019-08-08] MEDS: INSULIN GLARGINE 100 UNIT/ML SUBCUT SCH (09:19)
[2019-08-08 09:31] LABS: Basophils % 0.1 % (0.0-0.8); Eosinophils % 0.1 % (0.00-10.9); Hematocrit 37.7 VOL% (35.7-47.0); Hemoglobin 12.3 GM/DL (12.0-16.0); Immature Granulocytes % 1.2 %; Immature Granulocytes Absolute 0.21 #; Lymphocytes # 0.6 10*3/uL (1.4-4.0); Lymphocytes % 3.5 % (21.3-54.2); Mean Corpuscular HGB Conc 32.6 GM/DL (32-36); Mean Corpuscular Volume 88.5 FL (87-102); Mean Platelet Volume 9.4 FL (9.6-12.0); Neutrophils % 88.1 % (38.7-73.9); Platelet Count 394 T/CUMM (130-400); Red Blood Count 4.26 MC/CUMM (3.8-5.5); Red Cell Distribution Width 13.4 % (9.3-17.3); White Blood Count 17.1 T/CUMM (4-12)
[2019-08-08 10:05] LABS: Albumin 3.3 G/DL (3.4-5.0); Bilirubin,Total 1.5 MG/DL (0.2-1.0); Calcium 9.7 MG/DL (8.5-10.1); Osmolality,Calculated 282.2 MOS/KG (273-304); Total Protein 7.8 G/DL (6.4-8.3)
[2019-08-08 10:14] LABS: Hypochromasia 1+; Lymphocytes 6 % (20-55); Platelet Estimate Adequate; Segmented Neutrophils 85 % (50-85); Total Cells Counted 100
[2019-08-08] MEDS: CLINDAMYCIN INJ 900 MG in PREMIX 1 EACH IV SCH ×2 (11:11→15:03)
[2019-08-08] MEDS: VANCOMYCIN INJ 1,250 MG in SODIUM CHLORIDE 0.9% 250 ML IV SCH (17:05)
[2019-08-08] MEDS: sitaGLIPtin 100 MG TABLET PO SCH (21:35)
[2019-08-08] MEDS: SIMVASTATIN 40 MG TABLET PO SCH (21:35)
[2019-08-09] MEDS: methylPREDNISolone SOD SUC 125 MG/2 ML VIAL IV SCH ×2 (00:02→08:39)
[2019-08-09] MEDS: CLINDAMYCIN INJ 900 MG in PREMIX 1 EACH IV SCH ×2 (00:04→08:39)
[2019-08-09] MEDS: INSULIN GLARGINE 100 UNIT/ML SUBCUT SCH (08:38)
[2019-08-09] MEDS: INSULIN REGULAR 100 UNIT/ML SUBCUT SCH ×2 (08:38→11:42)
[2019-08-09] MEDS: CLOPIDOGREL 75 MG TABLET PO SCH (08:39)
[2019-08-09] MEDS: HALOPERIDOL 1 MG TABLET PO SCH (08:39)
[2019-08-09] MEDS: cloNIDine 0.1 MG TABLET PO SCH (08:40)
[2019-08-09] MEDS: FUROSEMIDE 40 MG TABLET PO SCH (08:40)
[2019-08-09] MEDS: metFORMIN 500 MG TABLET PO SCH (08:40)
[2019-08-09] MEDS: GABAPENTIN 600 MG TABLET PO SCH (08:40)
[2019-08-09] MEDS: MAGNESIUM CHLORIDE 64 MG TABLET PO SCH (08:40)
[2019-08-09] MEDS: LOSARTAN 50 MG TABLET PO SCH (08:40)
[2019-08-09] MEDS: PANTOPRAZOLE 40 MG TABLET PO SCH (08:40)
[2019-08-09] MEDS: METOPROLOL SUCCINATE XL 50 MG TABLET PO SCH (08:40)
[2019-08-09] MEDS: DOCUSATE SODIUM 100 MG CAPSULE PO PRN (08:40)
[2019-08-09 11:35] VITALS: BP 198/106
== END 2019-08-09 13:12 | disposition swing bed (61) | DRG 154 ==
LOC: EDUNIT# → EDBD → N.ED 04:47 → N.EDINP 04:47 → N.3E 15:46 → SUPCPDRO 08-06 15:48
PROVIDERS: ADMIT Family Medicine; ATTEND Family Medicine